=== PATIENT | female | born 1930 | race Hispanic/Latino ===

== ENCOUNTER 2016-06-06 16:13 | Emergency (ER) | payer MEDICARE ==
[2016-06-06] MEDS ORDERED: TYLENOL ONE (16:40)
[2016-06-06] MEDS ORDERED: TYLENOL PO ONE (16:43)
[2016-06-06 17:51] LABS: Basophils % (Auto) 0.7 % (0.0-1.8); Eosinophils % (Auto) 0.6 % (0.0-4.3); Hematocrit 38.9 % (30.3-42.9); Hemoglobin 12.2 gm/dl (10.1-14.3); Mean Corpuscular HGB Conc 31 % (30-34); Mean Corpuscular Hemoglobin 27 pg (28-32); Mean Corpuscular Volume 85 fl (79-97); Platelet Count 333 K/mm3 (140-440); Red Blood Count 4.55 M/mm3 (3.65-5.03); Red Cell Distribution Width 16.1 % (13.2-15.2); White Blood Count 9.9 K/mm3 (4.5-11.0)
[2016-06-06 17:58] LABS: Anion Gap 19 mmol/L; Blood Urea Nitrogen 18 mg/dL (7-17); Calcium 8.6 mg/dL (8.4-10.2); Carbon Dioxide 26 mmol/L (22-30); Chloride 98.3 mmol/L (98-107); Glucose 128 mg/dL (65-100); Potassium 4.3 mmol/L (3.6-5.0); Sodium 139 mmol/L (137-145)
--- NOTE | 2016-06-06 17:58 | XRay Report ---
FINAL REPORT EXAM: XR FOREARM 1V LT HISTORY: s/p fall sig. swelling and pain mid forearm TECHNIQUE: Left forearm two views PRIORS: None. FINDINGS: There is acute traumatic fracture through the base of the olecranon process of the ulna with moderate displacement. There adjacent associated soft tissue swelling. No evidence for joint effusion. No dislocation seen. No additional acute findings identified. Degenerative changes noted trapezium 1st metacarpal joint. IMPRESSION: Acute fracture of the olecranon process
[2016-06-06 18:12] LABS: INR 1.92 (0.87-1.13)
[2016-06-06 18:13] LABS: Partial Thromboplastin Time 34.1 Sec. (24.2-36.6)
--- NOTE | 2016-06-06 18:21 | XRay Report ---
FINAL REPORT EXAM: XR HUMERUS 2 LT HISTORY: s/p fall ? fracture TECHNIQUE: Left humerus two views PRIORS: None. FINDINGS: There is acute fracture through the base of the olecranon process with moderate displacement. No joint effusion. Joint space appears otherwise unremarkable. Distal humerus and radius appear intact. Noted is narrowing of the subacromial joint space of the shoulder likely reflecting chronic rotator cuff pathology Pacemaker noted IMPRESSION: Acute fracture of the olecranon process Findings suggestive of underlying rotator cuff pathology
--- NOTE | 2016-06-06 18:39 | Cat Scan Report ---
FINAL REPORT EXAM: CT HEAD/BRAIN WO CON HISTORY: trauma, fall TECHNIQUE: CT head without contrast PRIORS: None. FINDINGS: No acute intra-axial or extra-axial hemorrhage is identified. There is no evidence of midline shift or mass effect. The ventricles and sulci are within normal limits. Roque-white matter differentiation is intact. No acute parenchymal abnormalities seen. Bony calvarium is grossly intact. Visualized portions of the mastoids and paranasal sinuses are unremarkable. IMPRESSION: Negative CT head
--- NOTE | 2016-06-06 18:55 | Cat Scan Report ---
FINAL REPORT EXAM: CT CERVICAL SPINE WO CON HISTORY: trauma,fall TECHNIQUE: CT cervical spine with reconstructions PRIORS: None. FINDINGS: Vertebral bodies demonstrate normal height and alignment. Is multilevel disc space narrowing C4-C5 through C7-T1. Multilevel facet joint arthropathy noted throughout the cervical spine. The facet joints demonstrate normal alignment. The spinous processes are intact. Craniocervical junction is unremarkable. C1 and C2 are intact. 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
--- NOTE | 2016-06-06 19:05 | Ultrasound Report ---
FINAL REPORT EXAM: US EXTREM NONVASCULAR LTD LT HISTORY: left forearm hematoma TECHNIQUE: Ultrasound limited left forearm area hematoma PRIORS: None. FINDINGS: No focal abnormal fluid collection or mass identified. There is diffuse edema within the subcutaneous soft tissues the area of concern. IMPRESSION: Subcutaneous edema no focal hematoma or mass identified in the area of concern
[2016-06-06] MEDS ORDERED: NORCO 5/325 PO ONE (23:09)
--- NOTE | 2016-06-06 23:45 | Emergency Department Report ---
ED Fall HPI - General Chief Complaint: Fall Stated Complaint: LEST ARM Time Seen by Provider: 06/06/16 22:54 Source: patient Mode of arrival: Ambulatory Limitations: No Limitations - History of Present Illness Initial Comments: 85-year-old female presents to the hospital status post fall 2 nights ago. Fall was witnessed by her daughter. States she was recently for something and fell. Patient supposed endplate with a cane but did not have a cane at the time. Patient denies syncope, dizziness, head injury or LOC. She presents with left shoulder and left arm pain that is constant, worse with palpation and movement, rated 8/10 in intensity. No specific alleviating factors reported. Patient does take Coumadin for atrial fibrillation. Patient has a history of rotator cuff problems. - Related Data Previous Rx's Medication Instructions Recorded Last Taken Type HYDROcodone/APAP 5-325 [[place] 1 each PO Q6HR PRN #20 tablet 06/06/16 Unknown Rx 5/325] Allergies Allergy/AdvReac Type Severity Reaction Status Date / Time latex AdvReac Rash Verified 06/06/16 16:28 Penicillins AdvReac Rash Verified 06/06/16 16:28 ED Review of Systems ROS: Stated complaint: LEST ARM Other details as noted in HPI Comment: All other systems reviewed and negative Other: Constitutional: No fevers chills Eyes: No eye pain visual changes ENT: No ear pain or throat pain Neck: Denies pain Respiratory: Denies cough wheezing shortness of breath Cardiovascular: Denies chest pain, palpitations, syncope GI: Denies abdominal pain, nausea, vomiting, diarrhea : Denies dysuria, urinary frequency, or urgency Musculoskeletal: as per hpi Skin: Denies rash, lesions, erythema Neurologic: Denies headache, numbness, weakness Psychiatric: Denies suicidal ideation, hallucinations ED Past Medical Hx - Social History Smoking Status: Never Smoker - Medications Home Medications: Home Medications Medication Instructions Recorded Confirmed Last Taken Type HYDROcodone/APAP 5-325 [[place] 1 each PO Q6HR PRN #20 tablet 06/06/16 Unknown Rx 5/325] ED Physical Exam - General Limitations: Physical Limitation - Other Other exam information: General: No limitations, patient is alert in no acute distress Head exam: Atraumatic, normocephalic Eyes exam: Normal appearance ENT: Moist mucous membrane, normal oropharynx Neck exam: Normal inspection, full range of motion Respiratory exam: Clear to auscultation bilateral, no wheezes, rales, crackles Cardiovascular: irregular rhythm Abdomen: Soft, nondistended, and nontender, with normal bowel sounds, no rebound, or guarding Extremity: Full range of motion, tenderness to right elbow. Ecchymosis to medial forearm with swelling, 2+ radial pulse Back: Normal Inspection, full range of motion, no tenderness Neurologic: Alert, oriented x3, cranial nerves intact, no motor or sensory deficit Psychiatric: normal affect, normal mood Skin: Warm, dry, intact ED Course Vital Signs 06/06/16 06/06/16 06/06/16 16:23 16:46 23:14 Temperature 97.9 F Pulse Rate 93 H Respiratory 20 18 Rate Blood Pressure 136/71 180/68 O2 Sat by Pulse 99 Oximetry 06/06/16 06/06/16 06/06/16 23:20 23:24 23:29 Temperature 98.3 F Pulse Rate 79 Respiratory 14 Rate Blood Pressure 180/68 O2 Sat by Pulse 98 98 Oximetry 06/06/16 06/06/16 06/06/16 23:30 23:40 23:50 Temperature Pulse Rate Respiratory Rate Blood Pressure 149/74 149/74 149/74 O2 Sat by Pulse 97 100 91 Oximetry 06/07/16 00:00 Temperature Pulse Rate Respiratory Rate Blood Pressure 149/74 O2 Sat by Pulse 98 Oximetry - Reevaluation(s) Reevaluation #1: 06/06/16 23:48 Patient treated with [place] splint and sling ordered ED Medical Decision Making - Lab Data Result diagrams: 06/06/16 17:30 06/06/16 17:30 Lab Results 06/06/16 06/06/16 06/06/16 Range/Units 17:30 17:30 17:30 WBC 9.9 (4.5-11.0) K/mm3 RBC 4.55 (3.65-5.03) M/mm3 Hgb 12.2 (10.1-14.3) gm/dl Hct 38.9 (30.3-42.9) % MCV 85 (79-97) fl MCH 27 L (28-32) pg MCHC 31 (30-34) % RDW 16.1 H (13.2-15.2) % Plt Count 333 (140-440) K/mm3 Lymph % (Auto) 20.8 (13.4-35.0) % [place] % (Auto) 6.6 (0.0-7.3) % Eos % (Auto) 0.6 (0.0-4.3) % Baso % (Auto) 0.7 (0.0-1.8) % Lymph # 2.1 (1.2-5.4) K/mm3 [place] # 0.7 (0.0-0.8) K/mm3 Eos # 0.1 (0.0-0.4) K/mm3 Baso # 0.1 (0.0-0.1) K/mm3 Seg Neutrophils % 71.3 H (40.0-70.0) % Seg Neutrophils # 7.1 (1.8-7.7) K/mm3 PT 22.0 H (12.2-14.9) Sec. INR 1.92 H (0.87-1.13) APTT 34.1 (24.2-36.6) Sec. Sodium 139 (137-145) mmol/L Potassium 4.3 (3.6-5.0) mmol/L Chloride 98.3 (98-107) mmol/L Carbon Dioxide 26 (22-30) mmol/L Anion Gap 19 mmol/L BUN 18 H (7-17) mg/dL Creatinine 0.6 L (0.7-1.2) mg/dL Estimated GFR > 60 ml/min BUN/Creatinine Ratio 30.00 % Glucose 128 H (65-100) mg/dL Calcium 8.6 (8.4-10.2) mg/dL - Radiology Data Radiology results: report reviewed CT head: No acute findings CT cervical spine: Degenerative changes humerus x-ray: Acute fractures of the olecranon process. Findings suggestive of underlying rotator cuff pathology Forearm x-ray: Acute fracture of the olecranon process Nonvascular upper extremity ultrasound: Subcutaneous edema and no focal hematoma or mass identified - Medical Decision Making Plan to discharge patient home with PMD follow-up and orthopedic follow-up for olecranon fracture. Splint inspected by me and deemed effective. Patient placed in sling. [place] will be prescribed for pain - Differential Diagnosis fracture, contusion, sprain Critical Care Time: No Critical care attestation.: If time is entered above; I have spent that time in minutes in the direct care of this critically ill patient, excluding procedure time. ED Disposition Clinical Impression: Fracture of right olecranon process, Fall Disposition: DISCHARGED TO HOME OR SELFCARE Is pt being admited?: No Does the pt Need Aspirin: No Condition: Stable Instructions: Elbow Fracture in Adults (ED), Fall Prevention for Older Adults ( ED) Additional Instructions: Take the medication as prescribed. Follow up with the orthopedic doctor provided. Return if symptoms worsen. Prescriptions: HYDROcodone/APAP 5-325 [[place] 5/325] 1 each PO Q6HR PRN #20 tablet PRN Reason: Pain Referrals: ABEL JAMESON MD [Staff Physician] - 3-5 Days Time of Disposition: 00:12
[2016-06-07 00:11] VITALS: BP 149/74
== END 2016-06-07 00:15 | disposition home or self-care (01) ==
LOC: ED 16:13
DX: S52.022A Displaced fracture of olecranon process without intraarticular extension of left ulna, initial encounter for closed fracture (principal); Z88.0 Allergy status to penicillin; Z91.040 Latex allergy status; Z79.899 Other long term (current) drug therapy; W19.XXXA Unspecified fall, initial encounter; Y93.89 Activity, other specified; Y99.8 Other external cause status; Y92.89 Other specified places as the place of occurrence of the external cause
CPT/HCPCS: 36415; 70450; 72125; 80048; 85025; 85610; 85730